=== PATIENT | male | born 1945 | race Caucasian/White ===

== ENCOUNTER 2021-05-06 06:02 | Observation (INO) ==
--- NOTE | 2021-03-22 11:09 | PAT Medication Instructions ---
Medication Instructions Date of Service March 22, 2021 Home Medications amlodipine 5 mg tablet 5 mg PO QAM dabigatran etexilate 150 mg capsule (Pradaxa) 150 mg PO BID hydrochlorothiazide 12.5 mg tablet 12.5 mg PO UD sildenafil 100 mg tablet 100 mg PO DAILY PRN simvastatin 40 mg tablet 20 mg PO HS sotalol 80 mg tablet 80 mg PO UD sotalol 80 mg tablet 160 mg PO BID ASK your prescriber and surgeon dabigatran etexilate 150 mg capsule (Pradaxa) 150 mg PO BID (in order for spinal anesthesia, Dabigatran (Pradaxa) needs to be stopped 5 days before surgery. Please check if okay with doctor that prescribes this to you) STOP taking 24 hours before surgery sildenafil 100 mg tablet 100 mg PO DAILY PRN DO NOT take the morning of surgery hydrochlorothiazide 12.5 mg tablet 12.5 mg PO UD Take morning of surgery With a small sip of water, OTHERWISE NOTHING TO EAT OR DRINK AFTER MIDNIGHT: amlodipine 5 mg tablet 5 mg PO QAM sotalol 80 mg tablet Take evening before surgery simvastatin 40 mg tablet 20 mg PO HS sotalol 80 mg tablet Other Notes If you have any questions please call us at [phone] or [phone] or [phone] or [phone]
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
[~2021-05-06 06:02] MED LIST: ACETAMINOPHEN 500 MG TAB PO SCH; CeleBREX 200 MG CAP PO SCH; FAMOTIDINE 20 MG TAB PO SCH; LR 500ML BOLUS, THEN 15ML/HR IV SCH; LR 60ML/HR IV SCH; ROPIVACAINE 0.5% HCL/PF 150 MG, BUPIVACAINE 0.75% MPF 20 ML, EPINEPHrine 0.15 MG, Ketor... INFIL SCH; Scopolamine 1 MG TDSY TD SCH; TRANEXAMIC ACID 1,000 MG x 1 **For Topical Use TOP SCH; ceFAZolin 2000MG 2,000 MG/15 ML SYR IV SCH; dexAMETHasone 4 MG TAB PO SCH; traMADol HCL 50 MG TABLET PO SCH
[2021-05-06] MEDS ORDERED: MEPIVACAINE HCL 1.5% 30 ML VIAL ONE (06:45)
[2021-05-06] MEDS ORDERED: LIDOCAINE 2%/EPINEPHRINE 1:200,000 20 ML SDV ONE (06:45)
[2021-05-06] MEDS ORDERED: MIDAZOLAM HCL 1 MG/ML 2ML VIAL ONE (07:20)
[2021-05-06] MEDS ORDERED: KETAMINE 50 MG/5 ML SYRINGE ONE (07:20)
--- NOTE | 2021-05-06 07:36 | History & Physical Bridge Note ---
Date of Service May 06, 2021 History & Physical Bridge Note I have examined the patient, reviewed the History & Physical and in the interval since the performance of the History & Physical I have noted the following changes of clinical significance: no changes noted
[2021-05-06] MEDS ORDERED: ORTHO JOINT ANESTHETIC ONE (08:00)
[2021-05-06] MEDS ORDERED: ONDANSETRON INJ 2 MG/ML 2 ML VIAL ONE (08:37)
[2021-05-06] MEDS ORDERED: KETOROLAC 30 MG/ML VIAL ONE (08:37)
[2021-05-06] MEDS ORDERED: DEXAMETHASONE SOD INJ 4 MG/ML VIAL ONE (08:37)
[2021-05-06] MEDS ORDERED: GLYCOPYRROLATE 0.2 MG/ML VIAL ONE (08:37)
[2021-05-06] MEDS ORDERED: PROPOFOL IV EMULSION 10 MG/ML 20 ML VIAL IV ONE ×3 (08:37→09:25)
[2021-05-06] MEDS ORDERED: ePHEDrine sulfate 50 MG/ML SYR ONE (08:42)
[2021-05-06] MEDS ORDERED: ATROPINE SULFATE 0.1 MG/ML 10ML SYR IV PRN (08:49)
[2021-05-06] MEDS ORDERED: ONDANSETRON INJ 2 MG/ML 2 ML VIAL IV PRN ×5 (08:49→15:41)
[2021-05-06] MEDS ORDERED: PROMETHAZINE HCL 6.25 MG in SODIUM CHLORIDE 0.9% 50 ML IV PRN (08:49)
[2021-05-06] MEDS ORDERED: ePHEDrine sulfate 50 MG/ML AMP IV PRN (08:49)
[2021-05-06] MEDS ORDERED: fentaNYL citrate 100 MCG/2 ML VIAL IV PRN (08:49)
--- NOTE | 2021-05-06 10:01 | Post Operative Brief Note ---
Immediate Post Op Note v1 Date of Surgery May 06, 2021 Pre & Post Diagnosis Operation Date: 04/01/21 11:55 <No data on this case meets the specified criteria> Operation Date: 05/06/21 08:15 Pre-Op Diagnosis: Right Hip Osteoarthritis Post-Op Diagnosis: Right Hip Osteoarthritis I identified the patient and participated in the time-out.: Yes Procedure Operation Date: 04/01/21 11:55 <No data on this case meets the specified criteria> Operation Date: 05/06/21 08:15 Actual Procedures p Right Total Hip Arthroplasty(Right) - Ke Kam MD Surgeon Ke Kam MD Shipping Inspector Cinthia Peña MD and AYANA Blanca PA-C Estimated Blood Loss 50 Findings Consistent with Post-Op Diagnosis Anesthesia Type MAC Epidural Complications none Disposition Disposition: Recovery Room
[2021-05-06] MEDS ORDERED: oxyCODONE/ACETAMINOPHEN 5mg/325mg TAB PO PRN (10:10)
--- NOTE | 2021-05-06 10:10 | Operative Report ---
Post Operative Report Pre & Post Diagnosis Operation Date: 04/01/21 11:55 <No data on this case meets the specified criteria> Operation Date: 05/06/21 08:15 Pre-Op Diagnosis: Right Hip Osteoarthritis Post-Op Diagnosis: Right Hip Osteoarthritis I identified the patient and participated in the time-out.: Yes Procedure Operation Date: 04/01/21 11:55 <No data on this case meets the specified criteria> Operation Date: 05/06/21 08:15 Actual Procedures p Right Total Hip Arthroplasty(Right) - Ke Kam MD Surgeon Harley Kam Metallurgical Technician Cinthia Peña MD and AYANA Blanca PA-C Estimated Blood Loss 50 Findings Consistent with Post-Op Diagnosis Consistent with post op diagnosis Specimens No specimens Description of Procedure I participated in prepping dressing and assisted Dr. Kam during the procedure. Please see Dr. Kam note I attest to the content of the Intraoperative Record and any orders documented therein. Any exceptions are noted below. Supervising Physician Co-Signing Physician Notes Dr. Kam
[2021-05-06] MEDS ORDERED: NON-FORMULARY MEDICATION (Sildenafil 100 mg Tablet) PO PRN ×2 (10:13→15:41)
[2021-05-06] MEDS ORDERED: SOTALOL HCL 80 MG TAB PO SCH ×2 (10:15→21:00)
[2021-05-06] MEDS ORDERED: hydroCHLOROthiazide 25 MG TAB PO SCH ×2 (10:15→17:30)
--- NOTE | 2021-05-06 10:35 | Operative Report (OR) ---
DATE OF SURGERY: 05/06/2021 PREOPERATIVE DIAGNOSIS: Right hip osteoarthritis and previous right femur fracture. POSTOPERATIVE DIAGNOSIS: Right hip osteoarthritis and previous right femur fracture. OPERATION PERFORMED: Right total hip arthroplasty. SURGEON: Ke Kam MD. AMBULATORY CARE NURSE SURGEONS: Cinthia Peña MD and Marylou Blanca PA-C. ESTIMATED BLOOD LOSS: 50 mL. SPECIMENS: Right femoral head. COMPLICATIONS: None. IMPLANTS: 1. DePuy [place] 60 mm outer diameter Gription acetabular sector cup. 2. A 6.5 x 40 mm cancellous bone screw. 3. [place] Ultrex polyethylene liner neutral for a 36 mm femoral head. 4. Tri-Lock femoral stem size 10 high offset. 5. Biolox Delta ceramic femoral head with a +5 offset and a 36 mm diameter. INDICATIONS: The patient is a 75-year-old male with right hip pain refractory to conservative management. X-rays demonstrate [id number]-[id number] arthritis. Many years ago, he fractured his right femur which was treated surgically but resulted in a malunion, requiring that a short, proximal metaphyseal press fit femoral stem be used. I had a long discussion with him about the risks and benefits of surgery, alternatives to surgery, and expected outcomes. After reviewing all these, he elected to proceed with surgery. All questions were answered, informed consent was signed. DESCRIPTION OF OPERATION: The patient was identified in the preoperative holding area where his surgical site was marked. He was given an epidural by anesthesia and brought back to the main operating room where he was placed on the operating room table and carefully moved into lateral decubitus position. Intravenous sedation was administered as well as IV antibiotics. Topical tranexamic acid was used at the end of the case given his use of blood thinners. All bony prominences were padded. He was then prepped and draped in the usual sterile fashion. Prior to incision, a multidisciplinary timeout was called. All in the room were in agreement. We began by making a 14 cm long incision for a posterior approach to the hip. We dissected down to subcutaneous tissues to the level of fascia. The fascia was incised in line with the incision. The Charnley bow was placed. The short external rotators and quadratus femoris were exposed by reflecting the fat posteriorly. The interval between the piriformis and the gluteus medius was dissected out, and the gluteus medius was lifted off the lateral femoral capsule. The upper border of the quadratus femoris was subperiosteally released off the femur. The piriformis and short external rotators were then dissected off the posterior hip capsule and reflected posteriorly. A box cut was made in the posterior hip capsule. The hip was then dislocated. The center of the femoral head to the lesser trochanteric distance was measured at 64 mm. Our femoral neck osteotomy was then made 10 mm above the lesser trochanter as was our preoperative template. We then made our femoral resection. The acetabulum was then exposed. The acetabular labrum was sharply excised. The contents of cotyloid fossa were removed. We then began reaming with a 50 mm reamer. We sequentially reamed up to a size 60 mm shell, which was our preoperative template. I then irrigated out the bony acetabulum and opened up the Sprouteluy [place] 60 mm outer diameter acetabular component. This was impacted into position at 25 degrees of anteversion and 40 degrees of lateral opening. A single cancellous bone screw was placed up into the ilium. Excellent fixation was obtained. The trial liner was then placed. Next, the femur was exposed. The lateral neck was removed. We then placed the intramedullary canal guide and began broaching. We broached all the way up to a size 10 broach. This gave us excellent medial and lateral fill and stability. The size high-offset neck was placed with a +5 head. This reproduced his offset measurement of 64 mm. We then reduced the hip. We checked his leg lengths, which were symmetric. His shuck test was appropriate. He was stable in extension and external rotation. At 90 degrees of hip flexion, he could be internally rotated 65 degrees before leaving out of the cup. I was very happy with the stability exam. Therefore, the hip was redislocated and the femoral components were removed. The acetabulum was exposed once again and the acetabular trial liner was removed. The real AltrX polyethylene liner was then opened up and impacted down into the cup. We checked to ensure the locking mechanism had engaged, which it had. We then irrigated out the femoral canal and dried it. The real size 10 Tri-Lock stem was then impacted down into the proximal femur. It sat at the same level as the broach. Therefore, the +5 femoral head was opened up and was impacted down onto the trunnion. The hip was once again reduced. We then began to close. Sterile dilute Betadine solution was used to irrigate out the wound and sit in the soft tissues for 3 minutes. We then injected our periarticular cocktail into the subcutaneous tissues. The Betadine was then irrigated out of the wound. The piriformis and short external rotators were repaired through bone tunnels in the posterior aspect of the greater trochanter using #2 Vicryl sutures. The wound was then bathed with tranexamic acid topical. We then ran the fascia with a looped #1 PDS suture. #1 PDS was used in the subcutaneous fatty layer. 2-0 Vicryl was used in the dermal layer. Dermabond and ZipLine dressing were used for the skin. Sterile dressings were then applied. He was rolled supine, his leg lengths were checked and were symmetric, and he was transferred to the recovery room in stable condition. POSTOPERATIVE COURSE: The patient will be discharged from the recovery room once he passes all the safety checklist items for outpatient total hip arthroplasty. He will follow up in the clinic in 2 weeks for check of his dressing. The Silverlon dressing will remain in place until then. He will resume his Pradaxa for DVT prophylaxis starting tomorrow. Job ID: [id number] [facility]
--- NOTE | 2021-05-06 10:43 | XRay Report ---
XR hip 1V RT w pelvis HISTORY: 75 years-old Male IN PACU - A/P PELVIS and LATERAL HIP right hip total joint arthroplasty COMPARISON: Pelvis radiograph 05/04/2021 TECHNIQUE: AP view of the pelvis with crosstable lateral view of the right hip FINDINGS: Right hip total joint arthroplasty demonstrates satisfactory alignment. No acute fracture or unexpect ed foreign body. Expected postoperative soft tissue swelling and deep tissue air surrounds the right hip. Cortical thickening of the proximal femoral diaphysis is unchanged suggestive of healed fracture deformity. Moderate left hip osteoarthritis. IMPRESSION: Right hip total joint arthroplasty with expected postoperative changes. ACT 112: Negative or not required by law. The above report was generated using voice recognition software. It may contain grammatical, syntax o r spelling errors. Electronically signed by: Jeremiah Sarkar M.D. 05/06/2021 10:42 AM
--- NOTE | 2021-05-06 13:15 | Operative Report ---
Post Operative Report Pre & Post Diagnosis Operation Date: 04/01/21 11:55 <No data on this case meets the specified criteria> Operation Date: 05/06/21 08:15 Pre-Op Diagnosis: Right Hip Osteoarthritis Post-Op Diagnosis: Right Hip Osteoarthritis I identified the patient and participated in the time-out.: Yes Procedure Operation Date: 04/01/21 11:55 <No data on this case meets the specified criteria> Operation Date: 05/06/21 08:15 Actual Procedures p Right Total Hip Arthroplasty(Right) - Ke Kam MD Surgeon Ke Kam MD Esthetic Dermatologist Cinthia Peña MD and AYANA Blanca PA-C Estimated Blood Loss 50 Findings Consistent with Post-Op Diagnosis Specimens Right femoral head Description of Procedure I was present during the entire procedure assisting with positioning, prepping, draping, wound retraction, wound closure, dressing and splint application. Fellow also present. I served as an extra set of hands during the case. Please see Dr. Kam procedure note for specifics of the case. I attest to the content of the Intraoperative Record and any orders documented therein. Any exceptions are noted below.
--- NOTE | 2021-05-06 14:09 | Anesthesia Procedure Note ---
Date of Service May 06, 2021 Anesthesia Post Epidural Note Vital Signs Vital Signs: Temp Pulse Resp BP Pulse Ox 36.4 C L 66 18 107/66 95 05/06/21 11:00 05/06/21 13:00 05/06/21 13:00 05/06/21 13:00 05/06/21 13:00 Pain Intensity Right Hip: Pain Intensity: 3 Notes Mental Status: alert / awake / arousable Nausea / Vomiting: adequately controlled Pain: adequately controlled Airway Patency, RR, SpO2: stable & adequate BP & HR: stable & adequate Hydration State: stable & adequate Neuraxial Anesthesia: was administered and sensory block is resolving Anesthetic Complications: no major complications apparent and Pt Satisfied with anesthetic care Epidural: Removed without complications and With tip intact
--- NOTE | 2021-05-06 14:09 | Anesthesiology Progress Note ---
Date of Service May 06, 2021 Anesthesia Post Procedure Vital Signs Vital Signs: Temp Pulse Pulse Resp BP Pulse Ox 05/06/21 13:00 66 18 107/66 95 05/06/21 12:30 62 16 104/64 94 05/06/21 12:00 66 18 103/69 96 05/06/21 11:30 64 18 111/78 96 05/06/21 11:00 36.4 C L 69 18 118/67 93 05/06/21 10:45 36.4 C L 62 18 108/68 93 05/06/21 10:40 60 16 110/65 96 05/06/21 10:30 36.4 C L 61 16 110/64 94 05/06/21 10:20 61 16 94/64 L 93 05/06/21 10:11 36.3 C L 66 16 80/50 L 95 05/06/21 06:32 36.7 C 88 20 138/96 98 Pain Intensity Right Hip: Pain Intensity: 3 Transfer of Care Handoff Completed per policy Notes Mental Status: alert / awake / arousable Patient Amnestic to Procedure: Yes Nausea / Vomiting: adequately controlled Pain: adequately controlled Airway Patency, RR, SpO2: stable & adequate BP & HR: stable & adequate Hydration State: stable & adequate Neuraxial Anesthesia: was administered and sensory block resolved Anesthetic Complications: no major complications apparent
[2021-05-06] MEDS ORDERED: bisacodyL 10 MG SUPP PR PRN (14:33)
[2021-05-06] MEDS ORDERED: METOCLOPRAMIDE HCL INJ 5 MG/ML 2 ML VIAL IV PRN (14:33)
[2021-05-06] MEDS ORDERED: diphenhydrAMINE 50 MG/ML VIAL IV PRN (14:33)
[2021-05-06] MEDS ORDERED: MAGNESIUM HYDROXIDE SUSP 30 ML UDC PO PRN (14:33)
[2021-05-06] MEDS ORDERED: ALUMINUM/MAGNESIUM SUSP 30 ML UDC PO PRN (14:33)
[2021-05-06] MEDS ORDERED: oxyCODONE HCL IR 5 MG TAB (IMMEDIATE RELEASE) PO PRN (14:33)
[2021-05-06] MEDS ORDERED: TAMSULOSIN HCL 0.4 MG CAP PO PRN ×2 (14:33→15:41)
[2021-05-06] MEDS ORDERED: NALOXONE HCL 0.4 MG/1 ML VIAL/CARP IV PRN (14:33)
[2021-05-06] MEDS ORDERED: KETOROLAC TROMETHAMINE 15 MG/ML VIAL IV SCH (14:45)
[2021-05-06] MEDS ORDERED: SODIUM CHLORIDE 0.9% 1000ML 1,000 ML IV SCH ×2 (14:45→15:30)
[2021-05-06] MEDS ORDERED: ceFAZolin 2000MG 2,000 MG/15 ML SYR IV ONE (16:00)
[2021-05-06] MEDS: KETOROLAC TROMETHAMINE 15 MG/ML VIAL IV SCH ×2 (17:57→23:21)
[2021-05-06] MEDS: Scopolamine CHECK PATCH PLACEMENT SCH ×2 (18:01→22:55)
[2021-05-06] MEDS: DOCUSATE SODIUM 100 MG CAP PO SCH (20:22)
[2021-05-06] MEDS: SOTALOL HCL 80 MG TAB PO SCH (20:23)
[2021-05-06] MEDS ORDERED: SIMVASTATIN 20 MG TAB PO SCH ×2 (21:00)
[2021-05-06] MEDS ORDERED: DOCUSATE SODIUM 100 MG CAP PO SCH (21:00)
[2021-05-06] MEDS ORDERED: SENNA 8.6 MG TAB PO SCH ×2 (21:00)
[2021-05-06] MEDS: ACETAMINOPHEN 500 MG TAB PO SCH (21:17)
[2021-05-06] MEDS ORDERED: ACETAMINOPHEN 500 MG TAB PO SCH (22:00)
[2021-05-07] MEDS: ACETAMINOPHEN 500 MG TAB PO SCH (05:37)
[2021-05-07] MEDS: KETOROLAC TROMETHAMINE 15 MG/ML VIAL IV SCH (05:37)
[2021-05-07] MEDS: Scopolamine CHECK PATCH PLACEMENT SCH (07:09)
[2021-05-07] MEDS ORDERED: DABIGATRAN ETEXILATE 75 MG CAP PO SCH (09:00)
[2021-05-07] MEDS ORDERED: MULTIVITAMIN TAB PO SCH ×2 (09:00)
[2021-05-07] MEDS ORDERED: amLODIPine BESYLATE 5 MG TAB PO SCH ×2 (09:00)
[2021-05-07] MEDS: DOCUSATE SODIUM 100 MG CAP PO SCH (09:16)
--- NOTE | 2021-05-07 09:25 | Orthopedic Progress Note ---
Date of Service May 07, 2021 Assessment & Plan (1) S/P total hip arthroplasty: Plan: PT/OT Weightbearing as tolerated with walker assistance Pradaxa, aspirin and LATHA stockings for DVT prophylaxis Pain control with p.o. medications. Ice with EZ wrap If patient does not experience orthostatic hypotension when he does physical therapy this morning, we will plan on discharge later today. Patient is already set up with in-home physical therapy for the first 2 weeks postoperatively. He will follow-up with [facility] orthopedics in 2 weeks as previously scheduled. If he has questions or concerns that should arise prior to the follow-up, he should contact our clinic at [phone]. Silverlon dressing is to be kept in place until his follow-up. Admission and Anticipated Discharge Date Admission Date: May 06, 2021 Subjective This 75-year-old male is day 1 status post right total hip arthroplasty. Patient was set to be an outpatient total joint, however yesterday when physical therapy attempted to stand him he developed orthostatic hypotension. This happened on 2 separate occasions and required patient to be admitted overnight. Currently he states that he is doing very well. He denies chest pain, shortness of breath, fever, chills, sweats, lethargy, numbness or tingling in his right lower extremity or any significant pain. He states that he is yet to get up this morning but is hoping to be discharged home today. Review of Systems Review of Systems: All systems reviewed & are unremarkable except as noted in Subjective Physical Exam Physical Exam: Right hip: Outer dressing was removed. Silverlon was in place with some bloody drainage noted over the central portion however there was no bogginess or draining from the dressing so it was left in place. Patient is able to perform an active straight leg raise test. He is able to actively dorsi and plantarflex his foot. Quad strength is 4 out of 5. Knee range of motion from 0 to 90 degrees causes no pain. Logroll test is negative. Patient experiences no pain with light passive internal and external hip rotation. He is neurovascularly intact in the right lower extremity. Results & Data ([facility]) Vital Signs (Past 12 Hours) Vital Signs Temp Pulse Resp BP Pulse Ox 05/07/21 07:13 36.8 C 82 16 120/72 92 05/07/21 03:06 36.8 C 90 18 119/73 91 05/06/21 23:05 36.4 C L 71 16 124/71 93 Diagnostic Findings Laboratory Results SARS-CoV-2, RNA, NAAT NEGATIVE (NEGATIVE) 05/06/21 06:10 Impressions Hip/Pelvis X-Ray 05/06/21 10:10 XR hip 1V RT w pelvis HISTORY: 75 years-old Male IN PACU - A/P PELVIS and LATERAL HIP right hip total joint arthroplasty COMPARISON: Pelvis radiograph 05/04/2021 TECHNIQUE: AP view of the pelvis with crosstable lateral view of the right hip FINDINGS: Right hip total joint arthroplasty demonstrates satisfactory alignment. No acute fracture or unexpected foreign body. Expected postoperative soft tissue swelling and deep tissue air surrounds the right hip. Cortical thickening of the proximal femoral diaphysis is unchanged suggestive of healed fracture deformity. Moderate left hip osteoarthritis. IMPRESSION: Right hip total joint arthroplasty with expected postoperative changes. ACT 112: Negative or not required by law. The above report was generated using voice recognition software. It may contain grammatical, syntax or spelling errors. Electronically signed by: Jeremiah Sarkar M.D. 05/06/2021 10:42 AM
--- NOTE | 2021-05-07 09:27 | Discharge Summary ---
Date of Service May 07, 2021 Admission HPI Per Admitting Provider History of Present Illness (including history relevant to procedure): This 75-year-old male presents the clinic today for his preoperative history and physical. Patient was initially scheduled for this procedure in early March however he was canceled due to the Covid pandemic and restrictions placed on the operating room at [facility]. States he has been experiencing increasing hip pain for the past year without any specific type of injury. He has a medical history significant for right femur fracture back in the that was treated with traction. He developed blood clots as a result of his being on prolonged bedrest. He subsequently went on to have another fracture and ended up having surgery on his right femur. He believes this may be related to the development of arthritis. He has previously had a right knee replacement. He had a good result from this surgery. He is on chronic Pradaxa for blood thinners because of his history of blood clots. However, he denies any other blood clots besides the one mentioned above. Patient points to his anterior groin as where he feels the pain. It is better with rest and being immobile. It is worse with any movement. He has difficulty taking his socks on and off. Trouble doing stairs, which he non-reciprocates. He has tried taking some Tylenol without much relief. Review Of Systems: 10 point review of systems performed is unremarkable except for those things stated in the HPI and past medical history. Past Medical History: Problems: Osteoarthritis of right hip Pre-op exam High cholesterol Hypertension History of renal calculi History of DVT Procedure History Procedure Procedure Date Comments Right total knee arthroplasty Right femur fracture ORIF Pacemaker implantation x2 Allergies and Sensitivities: NKA Social history: Completely unremarkable Family history: Heart disease Current Home Meds: (Last Updated 03/23 13:23) amLODIPine (Norvasc 5 mg oral tablet) 5 mg PO Daily dabigatran (Pradaxa 150 mg oral capsule) hydroCHLOROthiazide (hydroCHLOROthiazide 12.5 mg oral capsule) 12.5 mg PO Daily sildenafil 100 mg PO Daily 1 hour before sexual activity simvastatin (simvastatin 20 mg oral tablet) 20 mg PO qhs sotalol 160 mg PO Daily Initial Wt: 05/04 99.0 kg 218 lb Admission Exam Per Admitting Provider Physical Exam: (relevant to the procedure, including heart and lung evaluation) General: Alert and oriented x3 appropriate grooming and hygiene Eyes: Pupils are equal and reactive to light with accommodation. Extraocular moods are intact Throat: Deferred due to COVID-19 precautions Cardiac: Regular rate and rhythm with no murmurs or gallops appreciated Lungs: Clear to auscultation throughout with no wheezing, rales or rhonchi Abdomen: Mildly obese, nondistended, nontender with normoactive bowel sounds Extremities: Right hip: Flexion is limited to 90 degrees, internal rotation 0 degrees and external rotation to 50 degrees. positive logroll test. tenderness to palpation in the groin. Vascular intact in right lower extremity. Stinchfield test. Positive scour impingement test. Neuro: Cranial nerves II through XII are intact with no motor or sensory deficit Skin: Normal in appearance with no open skin areas of discharge Principal Diagnosis Right hip osteoarthritis Discharge Exam Right hip: Outer dressing was removed. Silverlon was in place with some bloody drainage noted over the central portion however there was no bogginess or draining from the dressing so it was left in place. Patient is able to perform an active straight leg raise test. He is able to actively dorsi and plantarflex his foot. Quad strength is 4 out of 5. Knee range of motion from 0 to 90 degrees causes no pain. Logroll test is negative. Patient experiences no pain with light passive internal and external hip rotation. He is neurovascularly intact in the right lower extremity. Discharge Data Allergies Allergy/AdvReac Type Severity Reaction Status Date / Time No Known Allergies Allergy Verified 05/06/21 06:24 Procedures Performed Operation Date: 04/01/21 11:55 <No data on this case meets the specified criteria> Operation Date: 05/06/21 08:15 Actual Procedures p Right Total Hip Arthroplasty(Right) - Ke Kam MD Hospital Course (1) S/P total hip arthroplasty: Patient was scheduled to be an outpatient total joint but due to orthostatic hypotension when he was stood up on 2 separate occasions, patient required overnight admission. He is doing very well this morning. He is very anxious to be discharged home. If he is able to complete physical therapy exercises without a decrease in his blood pressure we will plan on discharge home later today. PT/OT Weightbearing as tolerated with walker assistance Pradaxa, aspirin and LATHA stockings for DVT prophylaxis Pain control with p.o. medications. Ice with EZ wrap If patient does not experience orthostatic hypotension when he does physical therapy this morning, we will plan on discharge later today. Patient is already set up with in-home physical therapy for the first 2 weeks postoperatively. He will follow-up with [facility]oped[facility] in 2 weeks as previously scheduled. If he has questions or concerns that should arise prior to the follow-up, he should contact our clinic at [phone]. Silverlon dressing is to be kept in place until his follow-up. Total Time Total Time Spent Total Time Spent (In Minutes): 20 minutes Discharge Plan Discharge Items Patient Disposition: Home - Home Health Services Reason For Visit: Right Hip Osteoarthritis Discharge Diagnosis: Right Hip Osteoarthritis Activity: As commented below Lifting: None Bathing: Keep incision dry Bathing Comment: May shower tomorrow Sexual Activity: Wait until after follow-up appointment Exercise/Sports: Wait until after follow-up appointment Driving/Machine Use: No driving until cleared by orthopedic physical therapist Weightbearing: Right weightbearing Weightbearing Comment: as tolerated with walker assistance Non-emergency contact: Surgeon Call non-emergency contact if: you have any medication questions, your pain is not controlled, your temperature is above 101.5, your wound has increased drainage and your wound pain has increased Follow-up/Referrals: [facility] [Outside] (as per surgeon's office) Telly Zhu PA-C [Primary Care Provider] - 05/13/21 9:00 am Diet: Regular Addtl Attending Provider Instructions: Post-operative Instructions Dear Patient and Family/Friends, Before you are discharged from the hospital, it is important to know what to expect when you get home after surgery. To that end, we have created this sheet of discharge instructions which covers many commonly asked questions. Make sure you go through this sheet in its entirety with your nurse before you are discharged. Please note that we will go over the specifics of your surgery and recovery when you return for your first post-operative visit. Sincerely, Dr. Kam Pain Expect to be in a fair amount of pain after surgery. Remember, our goal is not to eliminate your pain, but to make it tolerable. It is a good idea to stay ahead of your pain by taking the medications you were prescribed once you get home. Typically, the pain starts improving 3-7 days after surgery. You should start weaning off the narcotic pain medication (oxycodone, hydrocodone, hydromorphone, morphine) as soon as your pain improves. Please call our office if your pain is not adequately controlled. Ice Ice your operative site at least 5 times a day for 15-30 minutes at a time. Make sure you have a thin cloth between the ice or cooling unit and your skin to prevent valdes bite. This is especially important if you received a nerve block. Continue icing your operative site for the first 5-7 days after surgery, then as needed. Diet/Nausea/Vomiting Start by drinking clear liquids and eating crackers. If you can tolerate this, then you may resume your normal diet. If you feel nauseated or vomit, take Zofran/ondansetron (if prescribed). Please call our office if you have intractable nausea or vomiting, or, if after hours, you may go to the Emergency Room for help. Constipation Constipation is a common side effect of narcotic pain medication. If you have not had a bowel movement within 2 days after surgery, we recommend purchasing an over the counter laxative such as Milk of Magnesia, Dulcolax, or Miralax from a local pharmacy, and taking it as instructed. Call our clinic if any questions. Nerve block The anesthesia team sometimes places a nerve block to help with post-operative pain control. This results in significant numbness and inability to move the extremity. The nerve block usually wears off in 8-12 hours, but sometimes can last up to 24 hours. Please call our office if you are still unable to move your extremity after 24 hours, unless you received a pain pump to take home. Nerve blocks typically wear off quickly, so start taking pain medication as soon as you start feeling soreness near your surgical site. Weight bearing and Range of Motion. Do not bear any weight through your operative extremity immediately after surgery. If you had upper extremity surgery, do not lift anything with that arm. If you are in a knee brace, keep it locked in place until your follow-up. We will discuss your weight bearing, range of motion, and lifting restrictions in detail at your first post-operative appointment. Continuous Passive Motion (CPM) Machine If you were prescribed a CPM machine, it will start after your first post- operative appointment, at which time we will give you instructions on the range of motion settings and duration of treatment Physical therapy You will be given a prescription for physical therapy or occupational therapy at your first post-operative appointment. Typically, patients start therapy within 1 week of surgery Wound care and showering We will inspect your wound at your first post-operative visit, and may do a dressing change at that time. Most patients will be in a water-proof dressing that is removed 14 days after surgery. It is normal to see some dried blood on the dressing. Do not remove your dressing, paper strips or sutures yourself unless you are given permission. Showering is allowed the day after surgery. Do not scrub or remove any dressings. The wound should not be submerged underwater (i.e. in a bathtub or pool) until 4 weeks after surgery LATHA stockings If you were given white stockings, these are to be worn at all times except to shower (on both legs) for the first 2 weeks after surgery. Driving You may not drive while taking narcotic pain medication or while in a cast, splint, sling or brace. You, the patient, need to make the final determination about when you are safe to drive, however, the earliest you may consider driving after surgery is below: Hand/Wrist/Elbow Surgery: 3 days Shoulder Surgery: 2 weeks Hip,/Knee/Ankle Surgery: 4 weeks Fracture repair: 6 weeks Return to Work Your return to work depends on what surgery was done and what type of work you do. Please bring any paperwork your employer needs completed to your first post-operative visit. Also, bring a description of your job duties, as this helps us to understand what risks you may face at work. Travel Avoid long distance travel (greater than 1 hour) in airplanes and cars for the first 6 weeks after surgery. If you must travel, you need to have a Doppler ultrasound done before you travel to rule out a blood clot in your legs. Follow-up You should have a follow-up appointment already scheduled 1-2 days after surgery. If not, please contact our office to make this appointment before you leave the hospital. When to call the office It is normal to have swelling and bruising in the limb that was operated on. This will improve with time. It is also normal to have fevers for the first 2 days after surgery. Reasons you should call your doctor include: Uncontrolled pain; Nausea, vomiting, or constipation that does not improve with medication; Fevers over 101.5, chills, sweats; Drainage or bleeding from the wound; Foul odor; Spreading areas of redness; Any other concerns Pending Studies at Discharge: No Stand-Alone Forms: Anesthesia/Sedation, Adult, [facility] Medications and DC Order Prescriptions: Continued sotalol 80 mg Tablet 160 mg PO BID RF: 0 sotalol 80 mg Tablet 80 mg PO UD RF: 0 amlodipine 5 mg Tablet 5 mg PO QAM RF: 0 sildenafil 100 mg Tablet 100 mg PO DAILY PRN (Reason: Sexual Activity) RF: 0 simvastatin 40 mg Tablet 20 mg PO HS RF: 0 hydrochlorothiazide 12.5 mg Tablet 12.5 mg PO UD RF: 0 Pradaxa 150 mg Capsule 150 mg PO BID RF: 0 Discharge Orders: Discharge Order (Routine); Ordered 05/06/21 Ordered By: Epi Mcqueen/Other Patient Handouts: DVT Post Op Prevention Admission Data Admit Date/Time: 05/06/21 14:34 Attending Provider: Ke Kam Admit Provider: Ke Kam Primary Care Provider: Telly Zhu Other Providers: [facility]
[2021-05-07] MEDS: SOTALOL HCL 80 MG TAB PO SCH (10:26)
[2021-05-07] MEDS ORDERED: SOTALOL HCL 80 MG TAB PO SCH (12:00)
== END 2021-05-07 11:32 | disposition home health service (06) ==
LOC: 3N 06:02 → ASU 06:02